=== PATIENT | male | born 1960 | race Caucasian/White ===

== ENCOUNTER 2019-03-20 06:25 | Day surgery (SDC) | payer BC ==
[2019-03-20] MEDS: SOD CHLORIDE 0.9% 1,000 ML IV (07:00)
[2019-03-20] MEDS: CEFAZOLIN 2 GM/50 ML (PMX) 50 ML IVPB (07:00)
[2019-03-20] MEDS ORDERED: PROPOFOL 20 ML (08:22)
[2019-03-20] MEDS ORDERED: ROPIVACAINE 0.2% 20 ML VIAL (08:22)
[2019-03-20] MEDS ORDERED: MIDAZOLAM 1 MG/ML 2 ML INJ (08:22)
[2019-03-20] MEDS ORDERED: ROCURONIUM 50 MG INJ (08:22)
[2019-03-20] MEDS ORDERED: FENTAnyl 50 MCG/ML VIAL (08:22)
[2019-03-20] MEDS ORDERED: METOCLOPRAMIDE 10 MG INJ IV (08:30)
[2019-03-20] MEDS ORDERED: ONDANSETRON 4 MG INJ IV (08:30)
[2019-03-20] MEDS ORDERED: FENTAnyl 50 MCG/ML VIAL IV ×2 (08:30)
[2019-03-20] MEDS ORDERED: DIPHENHYDRAMINE 50 MG INJ IV (08:30)
[2019-03-20] MEDS ORDERED: hydrALAzine 20 MG INJ IV (08:30)
[2019-03-20] MEDS ORDERED: EPHEDrine SULFATE 50 MG/5 ML SYG IV (08:30)
[2019-03-20] MEDS ORDERED: MEPERIDINE 25 MG INJ IV (08:30)
[2019-03-20] MEDS ORDERED: LABETALOL HCL 20MG INJ IV (08:30)
[2019-03-20] MEDS ORDERED: HYDROmorphONE 1 MG/5 ML IV SYRINGE IV ×3 (08:30)
[2019-03-20] MEDS ORDERED: CEFAZOLIN 1 GM INJ (09:10)
[2019-03-20] MEDS ORDERED: PHENYLephrine (100 MCG/ML) 10ML SYG (09:22)
[2019-03-20] MEDS ORDERED: DEXAMETHASONE 4 MG/ML 5 ML INJ (09:28)
[2019-03-20] MEDS ORDERED: SUGAMMADEX SODIUM 200 MG/2 ML VIAL IV (09:28)
[2019-03-20] MEDS ORDERED: KETOROLAC 30 MG INJ (09:28)
[2019-03-20] MEDS ORDERED: METOCLOPRAMIDE 10 MG INJ (09:28)
[2019-03-20] MEDS ORDERED: ONDANSETRON 4 MG INJ (09:28)
[2019-03-20] MEDS: FENTAnyl 50 MCG/ML VIAL IV (10:03)
[2019-03-20] MEDS: OXYCODONE/ACETAMINOPHEN (5/325) TAB PO (10:44)
[2019-03-20] MEDS: HYDROCODONE/APAP (5/325) TAB PO (11:00)
[2019-03-20] MEDS: KETOROLAC 30 MG INJ IV (12:18)
== END 2019-03-20 13:15 | disposition home or self-care (01) ==
LOC: SDS 06:25
DX: K80.20 Calculus of gallbladder without cholecystitis without obstruction (principal); I25.10 Atherosclerotic heart disease of native coronary artery without angina pectoris; E78.5 Hyperlipidemia, unspecified; Z98.61 Coronary angioplasty status
CPT/HCPCS: 47562; 88304